=== PATIENT | female | born 1980 | race Caucasian/White ===

== ENCOUNTER 2019-05-04 03:08 | Emergency (ER) | payer MEDICAID ==
[~2019-05-04] VITALS: Ht 172.7 cm; Wt 87.5 kg
[2019-05-04 03:30] VITALS: Ht 172.7 cm; Wt 87.5 kg
[2019-05-04 05:39] VITALS: BP 140/91
== END 2019-05-04 05:39 | disposition home or self-care (01) ==
LOC: ED 03:08
DX: S51.811A Laceration without foreign body of right forearm, initial encounter (principal); Z88.0 Allergy status to penicillin; W54.0XXA Bitten by dog, initial encounter; Y93.89 Activity, other specified; Y92.89 Other specified places as the place of occurrence of the external cause; Y99.8 Other external cause status
CPT/HCPCS: J2001

== ENCOUNTER 2019-05-05 19:28 | Emergency (ER) | payer MEDICAID ==
[~2019-05-05] VITALS: Ht 172.7 cm; Wt 89.8 kg
[2019-05-05 19:31] VITALS: Ht 172.7 cm; Wt 89.8 kg
[2019-05-05 20:30] VITALS: BP 128/96
== END 2019-05-05 20:30 | disposition home or self-care (01) ==
LOC: ED 19:28
DX: S51.811D Laceration without foreign body of right forearm, subsequent encounter (principal); Z88.0 Allergy status to penicillin; W54.0XXD Bitten by dog, subsequent encounter

== ENCOUNTER 2019-05-08 17:23 | Emergency (ER) | payer MEDICAID ==
[~2019-05-08] VITALS: Ht 172.7 cm; Wt 46.3 kg
[2019-05-08 17:35] VITALS: BP 140/88; Ht 172.7 cm; Wt 46.3 kg
== END 2019-05-08 19:27 | disposition home or self-care (01) ==
LOC: ED 17:23
DX: N61.0 Mastitis without abscess (principal); S51.811D Laceration without foreign body of right forearm, subsequent encounter; Z88.0 Allergy status to penicillin; W54.0XXD Bitten by dog, subsequent encounter

== ENCOUNTER 2019-05-14 12:26 | Emergency (ER) | payer MEDICAID ==
[~2019-05-14] VITALS: Ht 172.7 cm; Wt 86.2 kg
[2019-05-14 12:29] VITALS: Ht 172.7 cm; Wt 86.2 kg
[2019-05-14 13:35] VITALS: BP 152/87
== END 2019-05-14 13:35 | disposition home or self-care (01) ==
LOC: ED 12:26
DX: Z48.02 Encounter for removal of sutures (principal)